=== PATIENT | male | born 1980 | race Caucasian/White ===

== ENCOUNTER 2020-04-25 12:36 | Emergency (ER) | payer MEDICAID ==
[~2020-04-25] VITALS: Ht 175.3 cm; Wt 97.5 kg
[2020-04-25 12:40] VITALS: BP_SYST 160
--- NOTE | 2020-04-25 12:45 | NUR ---
DR CASTRO IN TO ASSESS
--- NOTE | 2020-04-25 12:50 | NUR ---
ALERT, CALM, COOPERATIVE. RESP UNLABORED, SKIN WARM AND DRY. 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 PT WAS PLACED ON 5150 HOLD FOR DTS/DTO.
[2020-04-25 13:15] LABS: BILIRUBIN,URINE 1+ (NEGATIVE); BLOOD, URINE NEGATIVE (NEGATIVE); CLARITY/URINE CLEAR (CLEAR); COLOR,URINE YELLOW (YELLOW); GLUCOSE,URINE NEGATIVE (NEGATIVE); KETONES,URINE TRACE (NEGATIVE); LEUKOCYTE ESTERASE ,URINE TRACE (NEGATIVE); NITRITE, URINE NEGATIVE (NEGATIVE); PROTEIN URINE 1+ (NEGATIVE)
[2020-04-25 13:18] LABS: BASOPHILS % (AUTO) 0.6 % (0.0-2.0); EOSINOPHILS # (AUTO) 0.2 K/uL (0.0-0.4); HEMATOCRIT 47.2 % (36-54); HEMOGLOBIN 15.7 g/dL (14.0-18.0); LYMPHOCYTES # (AUTO) 2.1 K/uL (1.0-5.5); LYMPHOCYTES % (AUTO) 27.1 % (20.5-51.5); MEAN CORPUSCULAR HEMOGLOBIN 30 pg (27-31); MEAN CORPUSCULAR HGB CONC 33 % (32-36); MEAN CORPUSCULAR VOLUME 91 fL (79.0-98.0); MONOCYTES # (AUTO) 0.6 K/uL (0.0-1.0); MONOCYTES % (AUTO) 8.3 % (1.7-9.3); NEUTROPHILS # (AUTO) 4.7 K/uL (1.8-7.7); PLATELET COUNT (AUTO) 205 K/uL (130-430); RED BLOOD CELL COUNT(AUTO) 5.19 MIL/uL (4.2-6.2); RED CELL DISTRIBUTION WIDTH 13.3 % (9.0-15.0); WHITE BLOOD COUNT (AUTO) 7.6 K/uL (4.8-10.8)
--- NOTE | 2020-04-25 13:28 | NUR ---
CALM, RESP UNLABORED, BLOOD AND UA SENT. CALM, COOPERATIVE. NAD
[2020-04-25 13:29] LABS: ANION GAP 8 (5-15); CALCIUM 8.7 mg/dL (8.4-11.0); CHLORIDE 103 mmol/L (98-107); CREATININE 1.07 mg/dL (0.55-1.30); GLUCOSE 122 mg/dL (70-99); POTASSIUM 3.4 mmol/L (3.5-5.1); SODIUM SERUM 141 mmol/L (136-145); UREA NITROGEN, BLOOD 14 mg/dL (8-21)
[2020-04-25 13:31] LABS: BARBITURATE, URINE NEGATIVE (NEG <=200); BENZODIAZEPINE, URINE NEGATIVE (NEG <=150); CANNABINOID, URINE NEGATIVE (NEG <=50); COCAINE, URINE NEGATIVE (NEG <=150); METHAMPHETAMINES SCREEN,URINE POSITIVE (NEG <=500); OPIATE, URINE NEGATIVE (NEG <=100); PHENCYCLIDINE SCREEN,URINE NEGATIVE (NEG <=25); UR TRICYCLIC ANTIDEPRESSANTS NEGATIVE (NEG <=300); URINE AMPHETAMINE POSITIVE (NEG <=500); URINE METHADONE NEGATIVE (NEG <=200); URINE OXYCODONE SCREEN NEGATIVE (NEG <=100); URINE PROPOXYPHENE SCREEN NEGATIVE (NEG <=300)
[2020-04-25 13:32] LABS: GFR AFRICAN AMERICAN 98 mL/min (>90)
[2020-04-25 13:40] LABS: RBC,URINE 0-3 /HPF (0-3)
[2020-04-25 13:41] LABS: BACTERIA,URINE None Seen /HPF (None Seen); CALCIUM OXALATE CRYSTALS,UR 0-10 /HPF (None Seen); HYALINE CASTS, URINE 0-10 /LPF (None Seen)
[2020-04-25 13:43] LABS: ALANINE AMINOTRANSFERASE 28 U/L (12-78); ASPARTATE AMINOTRANSFERASE 30 U/L (10-37); TOTAL BILIRUBIN 0.4 mg/dL (0.0-1.0)
[2020-04-25 13:44] LABS: ACETAMINOPHEN < 1 ug/mL (1-30); ALCOHOL, BLOOD < 3 mg/dL (<10)
[2020-04-25 14:01] LABS: CHOLESTEROL 189 mg/dL (<200); HDL CHOLESTEROL 51 mg/dL (>45); TRIGLYCERIDES 198 mg/dL (30-150)
[2020-04-25 14:02] LABS: LDL CHOLESTEROL 105 mg/dL (<100)
--- NOTE | 2020-04-25 14:10 | NUR ---
SLEEPING, RESP UNLABORED, EASILY AROUSED, NO DISTRESS, 1:1 SITTER AT BEDSIDE
--- NOTE | 2020-04-25 17:50 | NUR ---
UP REQUESTING TO LEAVE, PT INFORMED OF BEING PLACED ON A HOLD UNABLE TO HAVE PT RETURN TO ROOM
--- NOTE | 2020-04-25 18:06 | NUR ---
ELOPED OFF UNIT, LAW ENFORCEMENT CALL TO REPORT HIS DEPARTURE FROM HOSPITAL. RAN ACROSS PARKING LOT SHOELESS AND IN HOSPITAL GOWN
--- NOTE | 2020-04-25 18:19 | NUR ---
WIRE DRAWING SETTER IN TO DISCUSS DETAINMENT.
[2020-04-25] MEDS ORDERED: LORazepam 2 MG/ML VIAL IM ONE (18:45)
[2020-04-25] MEDS ORDERED: HALOPERIDOL LACTATE 5 MG/ML VIAL IM ONE (18:45)
[2020-04-25] MEDS ORDERED: DIPHENHYDRAMINE INJ 50 MG/ML VIAL IM ONE (18:45)
--- NOTE | 2020-04-25 18:50 | NUR ---
PLACED IN 4 PINT RESTRAINS, MEDICATED, KILN FIRER HELPER AT BEDSIDE
[2020-04-25] MEDS ORDERED: DIPHENHYDRAMINE INJ 50 MG/ML VIAL ONE (18:55)
[2020-04-25] MEDS ORDERED: HALOPERIDOL LACTATE 5 MG/ML VIAL ONE (18:56)
[2020-04-25] MEDS ORDERED: LORazepam 2 MG/ML VIAL ONE (18:56)
--- NOTE | 2020-04-25 19:02 | NUR ---
PT REORIENTATED TO UNIT AND INFORMED OF CARE PLAN. PT UNABLE TO COMMUNICATE UNDERSTANDING. RESTRAINTS IN PLACE, CIRCULATION INTACT. PULSES PALPABLE, CAP REFILL< 3 SECS
--- NOTE | 2020-04-25 21:13 | NUR ---
RESTING EASY, 1:1 SITTER ABHIJEET AT BEDSIDE. RESP UNLABORED, SKIN WARM AND DRY
--- NOTE | 2020-04-26 00:54 | NUR ---
PT IN [place], COOPERATIVE AT THIS TIME. NO DISTRESS NOTED. VSS
--- NOTE | 2020-04-26 02:28 | NUR ---
PT IS AROUSABLE TO VERBAL STIMULI. NO DISTRESS NOTED AND SEEMS TO BE COOPERATIVE.
--- NOTE | 2020-04-26 06:54 | NUR ---
pt awake and is yelling at staff. given urinal and water. no distress noted. vss
--- NOTE | 2020-04-26 07:15 | NUR ---
Report received from RAMÓN Velazco for continuation of care. Patient is sleeping in bed. No signs or symptoms of distress noted.
--- NOTE | 2020-04-26 07:30 | NUR ---
Dietary called for breakfast tray.
--- NOTE | 2020-04-26 07:57 | NUR ---
X-ray at bedside.
--- NOTE | 2020-04-26 08:15 | NUR ---
Breakfast tray provided.
--- NOTE | 2020-04-26 11:30 | NUR ---
Dietary called for lunch tray.
--- NOTE | 2020-04-26 12:00 | NUR ---
Lunch tray provided.
[2020-04-26 15:07] VITALS: BP_SYST 132
--- NOTE | 2020-04-26 15:07 | NUR ---
Patient given written and verbal discharge instructions and verbalizes understanding. ER MD discussed with patient the results and treatment provided. Patient in stable condition. ID arm band removed. Patient educated on pain management and to follow up with PMD. Pain Scale 0/10. Opportunity for questions provided and answered. Medication side effect fact sheet provided.
--- NOTE | 2020-04-26 15:08 | NUR ---
Patient given written and verbal discharge instructions and verbalizes understanding. Given copies of tests performed during visit. Patient is awake, alert and oriented. Ambulatory with steady gait. Refuses offer of penitentiary placement. Given list of available shelters in surrounding areas. Ride arranged by warehouse associate driver.
== END 2020-04-26 15:07 | disposition home or self-care (01) ==
LOC: SED 12:36
DX: R45.6 Violent behavior (principal); F15.10 Other stimulant abuse, uncomplicated; F32.9 Major depressive disorder, single episode, unspecified; I10 Essential (primary) hypertension
CPT/HCPCS: 36415; 80053; 80061; 80307; 81000; 83036; 85025; 87081; 96372; 99285; G0480; G0481; G0482; J1200; J1630; J2060